=== PATIENT | female | born 1975 | race Caucasian/White ===

== ENCOUNTER 2016-03-26 13:00 | Outpatient (RCR) | payer BC ==
[~2016-03-26 13:00] MED LIST: DECADRON 4MG TAB4 MG PO; DIAMOX 250MG250 MG PO; PEPCID 20MG TAB20 MG PO; Patient's Own Medica OP; TUMS EXTRA STR750 MG PO; TYLENOL 325MG325 MG PO
== END 2016-03-26 14:07 | disposition still patient (30) ==
LOC: MKS.ESL.PT 13:00
DX: D49.6 Neoplasm of unspecified behavior of brain (principal); I69.851 Hemiplegia and hemiparesis following other cerebrovascular disease affecting right dominant side

== ENCOUNTER 2016-04-05 08:48 | Inpatient (IN) | payer BC ==
[~2016-04-05] VITALS: Ht 167.6 cm; Wt 56.2 kg
[2016-04-05 12:19] VITALS: BP 119/77; PULSE 74; TEMP 98.6
[2016-04-05 17:05] VITALS: BP 108/78; PULSE 68; TEMP 97.8
[2016-04-05 17:20] VITALS: BP 152/62; PULSE 88; TEMP 97.9
[2016-04-05 18:00] VITALS: BP 152/62; PULSE 88; TEMP 97.9
[2016-04-06 05:17] VITALS: BP 99/57; PULSE 67; TEMP 97.2
[2016-04-06 18:54] VITALS: BP 108/67; PULSE 60; TEMP 98.1
[2016-04-07 05:39] VITALS: BP 97/50; PULSE 53; TEMP 98.3
[2016-04-07 16:43] VITALS: BP 115/69; PULSE 71; TEMP 99.1
[2016-04-08 04:18] VITALS: BP 99/52; PULSE 63; TEMP 98.2
[2016-04-08 17:43] VITALS: BP 86/49; PULSE 63; TEMP 99.8
[2016-04-09 04:22] VITALS: BP 105/51; PULSE 64; TEMP 100.4; TEMP 98.5
[2016-04-09 12:31] LABS: ADD PATHOLOGY DIFF REVIEW NO
[2016-04-09 12:37] LABS: MEAN CELL VOLUME 87 fl (80.0-100.0); MEAN CORPUSCULAR HGB CONC 33 g/dl (33.0-37.0); MEAN PLATELET VOLUME 10.4 fl (7.4-10.4); PLATELET COUNT 328 K/mm3 (130-400); RED BLOOD COUNT 3.97 M/mm3 (4.10-5.30); REDCELL DISTRIBUTION WIDTH-CV 14.2 % (11.5-14.5)
[2016-04-09 12:40] LABS: HEMATOCRIT 34.7 % (37.0-47.0); HEMOGLOBIN 11.4 g/dl (12.5-16.0); MEAN CORPUSCULAR HEMOGLOBIN 29 pg (27.0-31.0); WHITE BLOOD COUNT 19.9 K/mm3 (4.8-10.8)
[2016-04-09 12:50] LABS: PH 7 (5-8); URINE APPEARANCE Cloudy; URINE BACTERIA Rare /hpf; URINE BILIRUBIN Negative (NEGATIVE); URINE BLOOD Negative (NEGATIVE); URINE COLOR Yellow; URINE GLUCOSE Negative (NEGATIVE); URINE KETONE Negative (NEGATIVE); URINE UROBILINOGEN Negative (NEGATIVE)
[2016-04-09 12:51] LABS: BAND 1 % (0-10); EOSINOPHIL 1 % (0-4); METAMYELOCYTE 2 % (0-0); NEUTROPHILS 74 % (42.0-75.2); TOTAL CELLS COUNTED 100
[2016-04-09 12:52] LABS: ANISOCYTOSIS 1+; HYPOCHROMIA 1+; POLYCHROMASIA 2+
[2016-04-09 12:59] LABS: CALCIUM 8.9 mg/dL (8.4-10.2); CREATININE, serum 0.8 mg/dL (0.52-1.25); MAGNESIUM 2.1 mg/dL (1.6-2.3); POTASSIUM 3.9 mmol/L (3.4-5.0)
[2016-04-09 16:07] VITALS: BP 115/67; PULSE 80; TEMP 99.3
[2016-04-10 04:12] VITALS: BP 93/43; PULSE 53; TEMP 98.6
[2016-04-10 15:51] VITALS: BP 108/65; PULSE 76; TEMP 99.7
[2016-04-11 08:43] VITALS: BP 112/72; PULSE 92; TEMP 98.1
[2016-04-11 16:28] VITALS: BP 112/65; PULSE 75; TEMP 98
[2016-04-12 04:38] VITALS: BP 103/56; PULSE 67; TEMP 98.7
[2016-04-12] MEDS ORDERED: NYSTATIN OR100 MU/ML PO (10:21)
[2016-04-12] MEDS ORDERED: ILOTYCIN5 MG/GM OP (10:22)
[2016-04-12] MEDS ORDERED: ELIQUIS 5MG PO (10:22)
[2016-04-12] MEDS ORDERED: GENTAMICIN OPTHA3 GM OP (10:23)
[2016-04-12] MEDS ORDERED: LIQUIFILM TEARS15 ML OP (10:23)
[2016-04-12] MEDS ORDERED: TRANSDERM-0.5 MG/21 TD (10:24)
== END 2016-04-12 14:35 | disposition home or self-care (01) | DRG 55 ==
PROVIDERS: Internal Medicine
DX: D33.2 Benign neoplasm of brain, unspecified (principal); R47.1 Dysarthria and anarthria; G51.0 Bell's palsy
CPT/HCPCS: 99222-AI; 99232-AI; 99233-AI; 99239; J1644; J8540

== ENCOUNTER → 2016-07-15 | Outpatient (RCR) | payer BC ==
[~2016-07-15] MED LIST changes: +ELIQUIS 5MG PO; +GENTAMICIN OPTHA3 GM OP; +ILOTYCIN5 MG/GM OP; +LIQUIFILM TEARS15 ML OP; +NYSTATIN OR100 MU/ML PO; +TRANSDERM-0.5 MG/21 TD
== END | disposition home or self-care (01) ==
LOC: MKS.ESL.PT → MKS.ESL.OT 04-16 13:30 → MKS.ESL.PT 04-17 16:00 → MKS.ESL.OT 04-19 13:45 → MKS.ESL.PT 04-26 13:00 → MKS.ESL.OT 05-01 13:45 → MKS.ESL.PT 05-06 14:15 → MKS.ESL.OT 05-17 13:45 → MKS.ESL.PT 05-20 14:15 → MKS.ESL.OT 05-22 13:00 → MKS.ESL.PT 05-24 14:30 → MKS.ESL.OT 05-31 13:45 → MKS.ESL.PT 06-03 14:15 → MKS.ESL.OT 06-13 14:30 → MKS.ESL.PT 06-14 13:45 → MKS.ESL.OT 06-17 15:15 → MKS.ESL.PT 07-03 13:15 → MKS.ESL.OT 07-11 14:30 → MKS.ESL.PT 07-12 13:00
DX: R53.1 Weakness (principal); D33.3 Benign neoplasm of cranial nerves; Z98.890 Other specified postprocedural states

== ENCOUNTER 2016-10-01 13:00 | Outpatient (RCR) | payer BC | END 2016-10-17 | LOC: MKS.ESL.PT | DX: Z48.3 Aftercare following surgery for neoplasm (principal); D33.3 Benign neoplasm of cranial nerves ==

== ENCOUNTER 2016-12-24 11:19 | Inpatient (IN) | payer BC ==
[~2016-12-24] VITALS: Ht 165.1 cm; Wt 68.9 kg
[2016-12-24] VITALS (241 sets, daily range): BP systolic 112–115; BP diastolic 64–65; PULSE 59–65; TEMP 100.4; O2SAT 84–100
[2016-12-24 12:15] LABS: COLLECTION METHOD CLEAN CATCH
[2016-12-24 12:18] LABS: BASO % 0.2 % (0.0-2.0); EOS % 0.1 % (0-4.0); GRAN # 15.4 (1.4-6.5); GRAN % 83.2 % (42.2-75.2); HEMATOCRIT 42.5 % (37.0-47.0); HEMOGLOBIN 14.3 g/dl (12.5-16.0); LYMPH % 10.7 % (20.0-51.0); MEAN CELL VOLUME 89 fl (80.0-100.0); MEAN CORPUSCULAR HEMOGLOBIN 30 pg (27.0-31.0); MEAN CORPUSCULAR HGB CONC 34 g/dl (33.0-37.0); MONO % 5.3 % (1.7-9.3); PLATELET COUNT 290 K/mm3 (130-400); RED BLOOD COUNT 4.79 M/mm3 (4.10-5.30); WHITE BLOOD COUNT 18.6 K/mm3 (4.8-10.8)
[2016-12-24 12:25] LABS: MUCOUS Present /lpf; PH 5 (5-8); URINE APPEARANCE Cloudy; URINE BACTERIA None Seen /hpf; URINE BILIRUBIN Negative (NEGATIVE); URINE BLOOD Negative (NEGATIVE); URINE COLOR Yellow; URINE GLUCOSE Negative (NEGATIVE); URINE KETONE 1+ (NEGATIVE); URINE LEUKOCYTE ESTERASE 1+ (NEGATIVE); URINE PROTEIN(semi-quant) 1+ (NEGATIVE); URINE UROBILINOGEN Negative (NEGATIVE)
[2016-12-24 12:31] LABS: INFLUENZA A NEGATIVE; INFLUENZA B NEGATIVE
[2016-12-24 12:32] LABS: ADJUSTED CALCIUM 8.8 mg/dL (8.4-10.2); ALBUMIN 4.5 gm/dL (3.5-5.0); CALCIUM 9.2 mg/dL (8.4-10.2); CREATININE, serum 0.77 mg/dL (0.52-1.25); POTASSIUM 3.6 mmol/L (3.4-5.0); TOTAL PROTEIN 7.9 gm/dL (6.4-8.2)
[2016-12-24 14:53] LABS: CEREBROSPINAL TUBE #1; CSF APPEARANCE CLEAR; CSF COLOR COLORLESS; CSF POLYMORPHONUCLEAR 98 % (0-6)
[2016-12-24 14:55] LABS: CEREBROSPINAL TUBE #4; CSF COLOR COLORLESS
[2016-12-24 14:56] LABS: CSF APPEARANCE CLEAR; CSF POLYMORPHONUCLEAR 100 % (0-6)
[2016-12-25] VITALS (836 sets, daily range): BP systolic 102–109; BP diastolic 59–69; PULSE 47–65; TEMP 97–100.5; O2SAT 81–100
[2016-12-26] VITALS (7 sets, daily range): BP systolic 100–121; BP diastolic 48–68; PULSE 48–56; TEMP 97.8–98.8
[2016-12-26 09:52] LABS: HEMATOCRIT 42.6 % (37.0-47.0); HEMOGLOBIN 14.3 g/dl (12.5-16.0); MEAN CELL VOLUME 90 fl (80.0-100.0); MEAN CORPUSCULAR HEMOGLOBIN 30 pg (27.0-31.0); MEAN CORPUSCULAR HGB CONC 34 g/dl (33.0-37.0); MEAN PLATELET VOLUME 11.6 fl (7.4-10.4); PLATELET COUNT 232 K/mm3 (130-400); RED BLOOD COUNT 4.75 M/mm3 (4.10-5.30)
[2016-12-26 09:57] LABS: ADD PATHOLOGY DIFF REVIEW NO
[2016-12-26 11:24] LABS: BAND 14 % (0-10); LYMPHOCYTE 11 % (20.0-51.0); MYELOCYTE 1 % (0-0); NEUTROPHILS 74 % (42.0-75.2); PLATELET ESTIMATE NORMAL (NORMAL); TOTAL CELLS COUNTED 100
[2016-12-27 03:08] VITALS: BP 110/65; PULSE 42; TEMP 98.1
[2016-12-27 06:25] LABS: MEAN CELL VOLUME 89 fl (80.0-100.0); MEAN CORPUSCULAR HGB CONC 34 g/dl (33.0-37.0); MEAN PLATELET VOLUME 11.1 fl (7.4-10.4); PLATELET COUNT 199 K/mm3 (130-400); RED BLOOD COUNT 3.65 M/mm3 (4.10-5.30); WHITE BLOOD COUNT 7.7 K/mm3 (4.8-10.8)
[2016-12-27 06:33] LABS: ADD PATHOLOGY DIFF REVIEW NO; HEMATOCRIT 32.4 % (37.0-47.0); MEAN CORPUSCULAR HEMOGLOBIN 30 pg (27.0-31.0)
[2016-12-27 06:36] LABS: CALCIUM 7.6 mg/dL (8.4-10.2); CREATININE, serum 0.6 mg/dL (0.52-1.25); POTASSIUM 3.7 mmol/L (3.4-5.0)
[2016-12-27 07:30] VITALS: BP 100/62; PULSE 49; TEMP 98.6
[2016-12-27 07:36] LABS: BAND 14 % (0-10); LYMPHOCYTE 25 % (20.0-51.0); NEUTROPHILS 61 % (42.0-75.2); PLATELET ESTIMATE NORMAL (NORMAL); TOTAL CELLS COUNTED 100
[2016-12-27 12:00] VITALS: BP 106/60; PULSE 57; TEMP 98.4
[2016-12-27 16:00] VITALS: BP 109/7; PULSE 52; TEMP 98.1
[2016-12-27 22:17] VITALS: BP 108/58; PULSE 55; TEMP 98.7
[2016-12-28] VITALS (7 sets, daily range): BP systolic 99–118; BP diastolic 57–665; PULSE 50–73; TEMP 98.1–98.7
[2016-12-28 05:39] LABS: BASO % 0.2 % (0.0-2.0); EOS % 0.1 % (0-4.0); GRAN # 5.8 (1.4-6.5); GRAN % 71.1 % (42.2-75.2); LYMPH # 1.6 (1.2-3.4); LYMPH % 19.2 % (20.0-51.0); MEAN CELL VOLUME 89 fl (80.0-100.0); MEAN CORPUSCULAR HGB CONC 33 g/dl (33.0-37.0); MEAN PLATELET VOLUME 10.8 fl (7.4-10.4); MONO # 0.6 (0.1-0.6); MONO % 6.7 % (1.7-9.3); PLATELET COUNT 212 K/mm3 (130-400); RED BLOOD COUNT 3.86 M/mm3 (4.10-5.30); WHITE BLOOD COUNT 8.2 K/mm3 (4.8-10.8)
[2016-12-28 05:41] LABS: HEMATOCRIT 34.2 % (37.0-47.0); HEMOGLOBIN 11.4 g/dl (12.5-16.0); MEAN CORPUSCULAR HEMOGLOBIN 30 pg (27.0-31.0)
[2016-12-28 05:44] LABS: CALCIUM 7.5 mg/dL (8.4-10.2); CREATININE, serum 0.58 mg/dL (0.52-1.25); POTASSIUM 3.6 mmol/L (3.4-5.0)
[2016-12-29 03:44] VITALS: BP 121/60; PULSE 76; TEMP 98.3
[2016-12-29 07:25] VITALS: BP 105/70; PULSE 53; TEMP 98.3
[2016-12-29 11:43] VITALS: BP 109/73; PULSE 85; TEMP 98.4
[2016-12-29 15:25] VITALS: BP 102/64; PULSE 69; TEMP 98.4
[2016-12-29 21:36] VITALS: BP 97/54; PULSE 63; TEMP 98.7
[2016-12-30 00:21] VITALS: BP 103/62; PULSE 51; TEMP 98.2
[2016-12-30 03:40] VITALS: BP 100/64; PULSE 49; TEMP 98
[2016-12-30 07:25] VITALS: BP 118/60; PULSE 58; TEMP 98.6
[2016-12-30] MEDS ORDERED: DECADRON 4MG TAB4 MG PO (11:11)
[2016-12-30] MEDS ORDERED: VANCOCIN HCL1 GM IV ×2 (11:24→11:25)
[2016-12-30] MEDS ORDERED: HEPARIN LOCK FLU5 M1 IV (11:24)
[2016-12-30] MEDS ORDERED: MAXIPIME2 GM IV (11:24)
[2016-12-30] MEDS ORDERED: NS INT FLUSH 1010 ML IV (11:24)
[2016-12-30 11:39] VITALS: BP 112/61; PULSE 64; TEMP 98.2
== END 2016-12-30 18:01 | disposition home or self-care (01) | DRG 95 ==
LOC: COL.ER 11:19 → ICU 15:11 → MEDICAL 12-25 19:20
PROVIDERS: Family Medicine; Internal Medicine; Physician Assistant
PROC: 009U3ZX Drainage of Spinal Canal, Percutaneous Approach, Diagnostic (ICD-10-PCS; principal; 2016-12-24)
DX: G00.9 Bacterial meningitis, unspecified (principal); N39.0 Urinary tract infection, site not specified; B95.2 Enterococcus as the cause of diseases classified elsewhere; G51.0 Bell's palsy; H49.21 Sixth [abducent] nerve palsy, right eye; R26.0 Ataxic gait
CPT/HCPCS: 99223-AI; 99232-AI; 99233-AI; C1751; J0290; J0692; J0696; J1100; J1644; J2270; J2550; J3370; J7030; J7050; J8540

== ENCOUNTER 2017-07-04 12:48 | Inpatient (IN) | payer BC ==
[~2017-07-04] VITALS: Ht 165.1 cm; Wt 64.0 kg
[~2017-07-04 12:48] MED LIST changes: +HEPARIN LOCK FLU5 M1 IV; +MAXIPIME2 GM IV; +NS INT FLUSH 1010 ML IV; +VANCOCIN HCL1 GM IV
[2017-07-04 15:13] LABS: COLLECTION METHOD CLEAN CATCH
[2017-07-04 15:28] LABS: GLUCOSE,CSF 32 mg/dL (40-70)
[2017-07-04 15:37] LABS: MUCOUS Present /lpf; PH 7 (5-8); SQUAMOUS EPITHELIAL 0-2 /hpf; URINE APPEARANCE Hazy; URINE BACTERIA Moderate /hpf; URINE BILIRUBIN Negative (NEGATIVE); URINE BLOOD Negative (NEGATIVE); URINE COLOR Yellow; URINE GLUCOSE Negative (NEGATIVE); URINE KETONE Negative (NEGATIVE); URINE LEUKOCYTE ESTERASE Negative (NEGATIVE); URINE NITRATE Positive (NEGATIVE); URINE PROTEIN(semi-quant) Negative (NEGATIVE); URINE RBC 0-2 /hpf; URINE UROBILINOGEN Negative (NEGATIVE)
[2017-07-04 15:39] LABS: CSF APPEARANCE CLOUDY; CSF RBC 300 /mm3 (0-0)
[2017-07-04 15:40] LABS: CSF MONONUCLEAR 14 % (70-100); CSF POLYMORPHONUCLEAR 86 % (0-6)
[2017-07-04 15:41] LABS: CSF APPEARANCE CLOUDY; CSF MONONUCLEAR 17 % (70-100); CSF POLYMORPHONUCLEAR 83 % (0-6); CSF RBC 250 /mm3 (0-0)
[2017-07-04 15:56] LABS: TOTAL PROTEIN,CSF 606 mg/dL (15-45)
[2017-07-04 17:43] VITALS: BP 128/72; PULSE 70; TEMP 100.3
[2017-07-04 18:28] LABS: CALCIUM 8.1 mg/dL (8.4-10.2); CREATININE, serum 0.6 mg/dL (0.52-1.25); POTASSIUM 4.1 mmol/L (3.4-5.0)
[2017-07-04 23:45] VITALS: BP 93/47; PULSE 84; TEMP 99.7
[2017-07-05 03:38] VITALS: BP 94/50; PULSE 78; TEMP 98.3
[2017-07-05 07:22] LABS: BASO % 0.2 % (0.0-2.0); GRAN # 21.1 (1.4-6.5); GRAN % 92.7 % (42.2-75.2); LYMPH # 0.9 (1.2-3.4); LYMPH % 3.8 % (20.0-51.0); MEAN CELL VOLUME 88 fl (80.0-100.0); MEAN CORPUSCULAR HGB CONC 34 g/dl (33.0-37.0); MEAN PLATELET VOLUME 11.9 fl (7.4-10.4); MONO # 0.5 (0.1-0.6); MONO % 2.2 % (1.7-9.3); PLATELET COUNT 176 K/mm3 (130-400); RED BLOOD COUNT 3.77 M/mm3 (4.10-5.30); REDCELL DISTRIBUTION WIDTH-CV 13.2 % (11.5-14.5)
[2017-07-05 07:36] LABS: CALCIUM 7.6 mg/dL (8.4-10.2); CREATININE, serum 0.57 mg/dL (0.52-1.25); POTASSIUM 3.7 mmol/L (3.4-5.0)
[2017-07-05 07:42] LABS: HEMATOCRIT 33.2 % (37.0-47.0); HEMOGLOBIN 11.4 g/dl (12.5-16.0); MEAN CORPUSCULAR HEMOGLOBIN 30 pg (27.0-31.0)
[2017-07-05 09:13] VITALS: BP 103/52; PULSE 70; TEMP 98.3
[2017-07-05 12:09] VITALS: BP 91/56; PULSE 57; TEMP 98
[2017-07-05 17:15] VITALS: BP 101/58; PULSE 64; TEMP 98.2
[2017-07-05 19:02] VITALS: BP 101/54; PULSE 59; TEMP 97.9
[2017-07-05 23:39] VITALS: BP 106/46; PULSE 68; TEMP 98.4
[2017-07-06 04:01] VITALS: BP 95/53; PULSE 57; TEMP 98.3
[2017-07-06 07:19] LABS: MEAN CELL VOLUME 88 fl (80.0-100.0); MEAN CORPUSCULAR HGB CONC 34 g/dl (33.0-37.0); PLATELET COUNT 176 K/mm3 (130-400); RED BLOOD COUNT 3.68 M/mm3 (4.10-5.30); REDCELL DISTRIBUTION WIDTH-CV 13.3 % (11.5-14.5)
[2017-07-06 07:27] LABS: HEMATOCRIT 32.5 % (37.0-47.0); MEAN CORPUSCULAR HEMOGLOBIN 30 pg (27.0-31.0)
[2017-07-06 07:48] LABS: CALCIUM 7.6 mg/dL (8.4-10.2); CREATININE, serum 0.53 mg/dL (0.52-1.25); POTASSIUM 3.6 mmol/L (3.4-5.0)
[2017-07-06 08:56] VITALS: BP 107/57; PULSE 64; TEMP 97.8
[2017-07-06 09:46] LABS: LYMPHOCYTE 9 % (20.0-51.0); NEUTROPHILS 90 % (42.0-75.2); TOXIC GRANULATION PRESENT
[2017-07-06 12:06] VITALS: BP 107/59; PULSE 56; TEMP 98.3
[2017-07-06 16:39] VITALS: BP 120/65; PULSE 52; TEMP 98
[2017-07-06 19:31] VITALS: BP 117/64; PULSE 49; TEMP 98.6
[2017-07-07] VITALS (7 sets, daily range): BP systolic 109–124; BP diastolic 53–64; PULSE 40–64; TEMP 97.5–98.6
[2017-07-07 08:35] LABS: MEAN CELL VOLUME 88 fl (80.0-100.0); MEAN CORPUSCULAR HGB CONC 34 g/dl (33.0-37.0); MEAN PLATELET VOLUME 11.6 fl (7.4-10.4); PLATELET COUNT 172 K/mm3 (130-400); RED BLOOD COUNT 3.95 M/mm3 (4.10-5.30); REDCELL DISTRIBUTION WIDTH-CV 13.3 % (11.5-14.5)
[2017-07-07 08:36] LABS: HEMATOCRIT 34.9 % (37.0-47.0); HEMOGLOBIN 11.9 g/dl (12.5-16.0); MEAN CORPUSCULAR HEMOGLOBIN 30 pg (27.0-31.0)
[2017-07-07 08:51] LABS: CALCIUM 7.9 mg/dL (8.4-10.2); CREATININE, serum 0.67 mg/dL (0.52-1.25); POTASSIUM 3.8 mmol/L (3.4-5.0)
[2017-07-07 09:26] LABS: BAND 7 % (0-10); LYMPHOCYTE 9 % (20.0-51.0); NEUTROPHILS 83 % (42.0-75.2); PLATELET ESTIMATE NORMAL (NORMAL)
[2017-07-08 00:26] VITALS: BP 95/56; PULSE 44; TEMP 98.2
[2017-07-08 04:37] VITALS: BP 112/68; PULSE 42; TEMP 98.1
[2017-07-08 06:40] LABS: MEAN CELL VOLUME 86 fl (80.0-100.0); MEAN CORPUSCULAR HGB CONC 35 g/dl (33.0-37.0); MEAN PLATELET VOLUME 11.9 fl (7.4-10.4); PLATELET COUNT 173 K/mm3 (130-400); RED BLOOD COUNT 3.75 M/mm3 (4.10-5.30); REDCELL DISTRIBUTION WIDTH-CV 13.1 % (11.5-14.5)
[2017-07-08 06:43] LABS: HEMATOCRIT 32.1 % (37.0-47.0); HEMOGLOBIN 11.1 g/dl (12.5-16.0); MEAN CORPUSCULAR HEMOGLOBIN 30 pg (27.0-31.0)
[2017-07-08 06:47] LABS: CALCIUM 7.3 mg/dL (8.4-10.2); CREATININE, serum 0.57 mg/dL (0.52-1.25); POTASSIUM 3.4 mmol/L (3.4-5.0)
[2017-07-08 07:46] VITALS: BP 129/65; PULSE 42; TEMP 98
[2017-07-08 07:53] LABS: BAND 1 % (0-10); LYMPHOCYTE 19 % (20.0-51.0); NEUTROPHILS 78 % (42.0-75.2); PLATELET ESTIMATE NORMAL (NORMAL)
[2017-07-08 12:15] VITALS: BP 132/71; PULSE 62; TEMP 98
[2017-07-08] MEDS ORDERED: CEFEPIME2 GM/100 M IV (13:53)
[2017-07-08] MEDS ORDERED: VANCOCIN HCL 5200 ML IV (14:55)
== END 2017-07-08 18:34 | disposition home or self-care (01) | DRG 95 ==
LOC: COL.ER 12:48 → MEDICAL 15:54
PROVIDERS: Emergency Medicine; Internal Medicine Pulmonary Disease; Physician Assistant
PROC: 009U3ZX Drainage of Spinal Canal, Percutaneous Approach, Diagnostic (ICD-10-PCS; principal; 2017-07-04)
PROC: 02HV33Z Insertion of Infusion Device into Superior Vena Cava, Percutaneous Approach (ICD-10-PCS; 2017-07-07)
DX: G00.9 Bacterial meningitis, unspecified (principal); N39.0 Urinary tract infection, site not specified; Z86.718 Personal history of other venous thrombosis and embolism
CPT/HCPCS: 99223-AI; 99231-AI; 99232-AI; 99233-AI; 99239; A9585; C1751; J0133; J0692; J0696; J1100; J1644; J1650; J2270; J2405; J3010; J3370; J7030; J7040; J7050

== ENCOUNTER 2017-07-18 15:30 | Outpatient (RCR) | payer BC ==
[2017-07-11 15:21] VITALS: BP 121/72; PULSE 56; TEMP 98
[2017-07-11 17:06] LABS: CALCIUM 8.3 mg/dL (8.4-10.2); CREATININE, serum 0.56 mg/dL (0.52-1.25); POTASSIUM 3.8 mmol/L (3.4-5.0)
[~2017-07-18] VITALS: Ht 165.1 cm; Wt 68.8 kg
[~2017-07-18 15:30] MED LIST changes: +CEFEPIME2 GM/100 M IV; +VANCOCIN HCL 5200 ML IV
[2017-07-18 16:05] VITALS: BP 119/67; PULSE 71; TEMP 98.3
[2017-07-18 16:06] LABS: HEMOGLOBIN 10.8 g/dl (12.5-16.0); MEAN CELL VOLUME 89 fl (80.0-100.0); MEAN CORPUSCULAR HEMOGLOBIN 30 pg (27.0-31.0); MEAN CORPUSCULAR HGB CONC 34 g/dl (33.0-37.0); PLATELET COUNT 161 K/mm3 (130-400); REDCELL DISTRIBUTION WIDTH-CV 14.3 % (11.5-14.5)
[2017-07-18 16:21] LABS: CALCIUM 8.9 mg/dL (8.4-10.2); CREATININE, serum 0.68 mg/dL (0.52-1.25)
[2017-07-18 16:40] LABS: BAND 2 % (0-10); EOSINOPHIL 3 % (0-4); LYMPHOCYTE 15 % (20.0-51.0); NEUTROPHILS 76 % (42.0-75.2); PLATELET ESTIMATE NORMAL (NORMAL)
[2017-07-18 16:41] LABS: ANISOCYTOSIS 1+
[2017-07-18 16:45] LABS: VANCOMYCIN TROUGH 17.25 ug/mL (7.00-20.00)
[2017-07-25 11:57] VITALS: BP 116/80; PULSE 54; TEMP 97.9
== END 2017-07-25 11:57 | disposition home or self-care (01) ==
LOC: EUO 15:30
PROVIDERS: Family Medicine
DX: G00.9 Bacterial meningitis, unspecified (principal); G97.82 Other postprocedural complications and disorders of nervous system
CPT/HCPCS: J1644